=== PATIENT | female | born 1945 ===

== ENCOUNTER 2021-01-25 09:14 | Emergency (ER) | payer OTHER ==
[~2021-01-25] VITALS: Ht 152.4 cm; Wt 88.5 kg
[2021-01-25] MEDS ORDERED: CARVEDILOL12.5 MG (09:33)
[2021-01-25] MEDS ORDERED: ISOSORBIDE DINI30 MG PO (09:34)
[2021-01-25] MEDS ORDERED: PLAVIX75 MG PO (09:35)
[2021-01-25] MEDS ORDERED: NORVASC10 MG PO (09:35)
[2021-01-25] MEDS ORDERED: GABAPENTIN400 MG PO (09:35)
[2021-01-25] MEDS ORDERED: LASIX40 MG PO (09:36)
[2021-01-25] MEDS ORDERED: PANTOPRAZOLE SO40 M2 PO (09:36)
[2021-01-25] MEDS ORDERED: RANEXA500 MG PO (09:38)
[2021-01-25] MEDS ORDERED: CILOSTAZOL100 MG PO (09:38)
[2021-01-25] MEDS ORDERED: HUMALOG100 UNIT/2 SQ (09:39)
[2021-01-25] MEDS ORDERED: CIPRO500 MG PO (15:54)
[2021-01-25] MEDS ORDERED: MUPIROCIN15 GM TOP (15:55)
== END 2021-01-25 16:13 ==
LOC: ER 09:14
DX: A46 Erysipelas (principal); L03.116 Cellulitis of left lower limb